=== PATIENT | female | born 1985 | race Caucasian/White ===

== ENCOUNTER → 2016-07-01 | Outpatient (CLI) | payer OTHER ==
[~2016-07-01] MED LIST: PREN1TAB29 PO; TYLENOL # 3 PO
[2016-07-01 12:04] LABS: BASO % 0.1 %; BASO ABS # 0.01 K/uL (0-0.2); COMPLETE YES; EOS % 0.4 %; HEMATOCRIT 36.1 % (37-47); IG% 0.6 %; LYMPH % 22.5 %; LYMPH ABS # 1.59 K/uL (1.2-3.4); MEAN CELL VOLUME 93.8 fL (80-100); MEAN CORPUSCULAR HEMOGLOBIN 32.7 pg (25-34); MEAN CORPUSCULAR HGB CONC 34.9 g/dl (32-36); MEAN PLATELET VOLUME 9.2 fL (7.4-10.4); MONO % 5.5 %; NEUT % 70.9 %; PLATELET COUNT 306 K/uL (130-400); RED BLOOD COUNT 3.85 M/uL (4.2-5.4); WHITE BLOOD COUNT 7.08 K/uL (4.8-10.8)
[2016-07-01 13:05] LABS: GTGD 50 Grams
[2016-07-02 13:54] LABS: AFP CONCENTRATION 30.6 NG/ML; AFP MULTIPLE OF MEDIAN 0.99; AFPTS INSULIN DEP DIABETIC? NO; AFPTS MATERNAL WT 161 LBS; ALPHA-FETOPROTEIN RACE CAUCASIAN=W; EDD DETERMINED BY ULTRASOUND; ESTRIOL MULTIPLE OF MEDIAN 1.34; HISTORY OF NTD NO; INHIBIN A 147 PG/ML; INHIBIN A MOM 0.89; REPEAT SAMPLE? NO; hCG MULTIPLE OF MEDIAN 0.72
== END | disposition home or self-care (01) ==
LOC: C.LAB 09:47
PROVIDERS: ATTEND Obstetrics & Gynecology
DX: Z34.82 Encounter for supervision of other normal pregnancy, second trimester (principal)

== ENCOUNTER → 2016-10-05 | Outpatient (CLI) | payer OTHER | END | disposition home or self-care (01) | LOC: C.LABSPEC 14:54 | PROVIDERS: ATTEND Obstetrics & Gynecology | DX: O99.513 Diseases of the respiratory system complicating pregnancy, third trimester (principal); J02.9 Acute pharyngitis, unspecified; Z3A.00 Weeks of gestation of pregnancy not specified ==

== ENCOUNTER → 2016-11-15 | Outpatient (CLI) | payer OTHER | END | disposition home or self-care (01) | LOC: C.LABSPEC 15:01 | PROVIDERS: ATTEND Obstetrics & Gynecology | DX: Z34.83 Encounter for supervision of other normal pregnancy, third trimester (principal) ==

== ENCOUNTER 2016-12-10 07:14 | Inpatient (IN) | payer OTHER ==
--- NOTE | 2016-12-01 09:40 | PAT Medication Instructions ---
Service Date Dec 01, 2016. Current Home Medication List Vit W/ Ferrous Fumara (), 1 TAB PO QPM [Tylenol # 3], 1 TAB PO PRN Medication Instructions For Your Scheduled Surgery - Hold the following medications the morning of surgery: Vit W/ Ferrous Fumara (), 1 TAB PO QPM - Take the following medications the morning of surgery with a sip of water: [Tylenol # 3], 1 TAB PO PRN (okay to take up to 4 hours prior to surgery if needed) - Take the following medications as scheduled the night before surgery: [Tylenol # 3], 1 TAB PO PRN (if needed) If you have any questions please call us at [phone] or [phone] or [phone]
[2016-12-01 10:23] LABS: BASO % 0.2 %; BASO ABS # 0.02 K/uL (0-0.2); COMPLETE YES; EOS % 0.3 %; HEMATOCRIT 30.7 % (37-47); IG% 2.2 %; LYMPH % 17.4 %; LYMPH ABS # 1.63 K/uL (1.2-3.4); MEAN CELL VOLUME 87.2 fL (80-100); MEAN CORPUSCULAR HEMOGLOBIN 28.1 pg (25-34); MEAN CORPUSCULAR HGB CONC 32.2 g/dl (32-36); MEAN PLATELET VOLUME 8.9 fL (7.4-10.4); NEUT % 73.9 %; PLATELET COUNT 271 K/uL (130-400); RED BLOOD COUNT 3.52 M/uL (4.2-5.4); WHITE BLOOD COUNT 9.39 K/uL (4.8-10.8)
[2016-12-01 10:31] LABS: INR 0.9 (0.9-1.1)
[2016-12-01 11:04] LABS: BLOOD UREA NITROGEN 6 mg/dl (7-18); BUN/CREATININE RATIO 8.3 (10-20); CARBON DIOXIDE 21 mmol/L (21-32); CHLORIDE 107 mmol/L (98-107); CREATININE 0.72 mg/dl (0.60-1.20); GLUCOSE 106 mg/dl (70-99); POTASSIUM 3.7 mmol/L (3.5-5.1); SODIUM 139 mmol/L (136-145)
[2016-12-01 11:07] LABS: CALCIUM 8.7 mg/dl (8.5-10.1)
--- NOTE | 2016-12-07 11:08 | HISTORY & PHYSICAL EXAMINATION ---
DATE OF ADMISSION: 12/10/2016 CHIEF COMPLAINT: Intrauterine , 39 weeks gestation, previous section. HISTORY OF PRESENT ILLNESS: The patient is a 31-year-old 2, para 1, general health is good. SHE IS ALLERGIC TO SULFA. was well dated with a first trimester ultrasound. Her due date 12/16/2016. Her first delivery was 2009, 7 pound 4 ounce male, failed induction at 42 weeks, baby went into distress, nuchal cord. She presently requests repeat section and has been scheduled for a repeat section at 39+ weeks gestation. PAST MEDICAL HISTORY: A 8-year-old boy in good health. ALLERGIES: SHE IS ALLERGIC TO SULFA. PAST SURGICAL HISTORY: She had a previous . She had ovarian cyst removed. She had breast augmentation. She had a tonsillectomy and adenoidectomy. SOCIAL HISTORY: No smoking. No excessive alcohol intake. Did work for a construction company. FAMILY HISTORY: Mom is 41 in good health. Father 50 in good health, 3 sisters in good health. REVIEW OF SYSTEMS: She has a long history plus a family history of migraine headaches. They have been well controlled during the with Tylenol with codeine. PHYSICAL EXAMINATION: GENERAL: Well-developed, well-nourished 31-year-old white female, alert, oriented x3 and cooperative in no acute distress, appeared her stated age. EYES: Conjunctivae are pink, sclerae white, no evidence of jaundice. EARS: Had normal light reflex bilaterally. NOSE: Had normal mucosa. Septum is midline. There were no polyps. THROAT: No erythema or evidence of infection. Teeth are in good state of repair. HEAD: Normocephalic, normal distribution of hair. NECK: Supple. Trachea midline. Thyroid is not enlarged. There is no adenopathy appreciated. Both carotids are of good intensity. CHEST: Clear to auscultation and percussion. No wheezes, rales or rhonchi appreciated. HEART: Regular rhythm. S1, S2 were normal. ABDOMEN: Revealed term size fetus. There was a large tattoo on the left lower quadrant and a well-healed Pfannenstiel incisional scar. PELVIC EXAMINATION: Revealed an anterior cervix, vertex presentation, 1 cm dilated. MUSCULOSKELETAL EXAMINATION: Revealed no calf tenderness. IMPRESSIONS OF THIS CASE: ALLERGIC TO SULFA, status post , status post ovarian cystectomy, status post breast augmentation, status post tonsillectomy and adenoidectomy, intrauterine at 39 weeks gestation for repeat section.
[2016-12-10] VITALS (13 sets, daily range): BP systolic 97–115; BP diastolic 62–72; PULSE 73–91; TEMP 36.4–36.6; O2SAT 97–100; Ht 167.6 cm; Wt 86.4 kg
[~2016-12-10] VITALS: Ht 167.6 cm; Wt 86.4 kg
[~2016-12-10 07:14] MED LIST changes: +CITRIC ACID/SODIUM CITRATE 15 ML UDC PO SCH
[2016-12-10] MEDS ORDERED: CITRIC ACID/SODIUM CITRATE 15 ML UDC PO ONE ×2 (07:30→08:45)
[2016-12-10] MEDS ORDERED: CEFOXITIN IV 2000 MG in DEXTROSE 5% 50ML IV SCH (07:30)
[2016-12-10] MEDS: LACTATED RINGER'S 1000ML 1,000 ML IV SCH ×2 (07:57→09:02)
[2016-12-10 07:58] LABS: INR 0.9 (0.9-1.1)
[2016-12-10 08:18] LABS: BLOOD UREA NITROGEN 9 mg/dl (7-18); BUN/CREATININE RATIO 14.9 (10-20); CARBON DIOXIDE 21 mmol/L (21-32); CHLORIDE 108 mmol/L (98-107); CREATININE 0.59 mg/dl (0.60-1.20); GLUCOSE 81 mg/dl (70-99); POTASSIUM 3.9 mmol/L (3.5-5.1); SODIUM 140 mmol/L (136-145)
[2016-12-10 08:56] LABS: CALCIUM 8.9 mg/dl (8.5-10.1)
[2016-12-10] MEDS ORDERED: FENTANYL CITRATE INJ 50 MCG/1 ML 2 ML VIAL ONE (09:22)
[2016-12-10] MEDS ORDERED: MoRPHine SULFATE PF 1 MG/ML 10 ML AMP/VIAL ONE (09:23)
[2016-12-10] MEDS ORDERED: OXYTOCIN INJ 10 UNITS/ML VIAL ONE ×3 (09:34→13:11)
[2016-12-10] MEDS ORDERED: PHENYLEPHRINE HCL INJ 10 MG/ML VIAL ONE (09:50)
[2016-12-10] MEDS ORDERED: MoRPHine SULFATE PF 1 MG/ML 10 ML AMP/VIAL EPI PRN (10:15)
[2016-12-10] MEDS ORDERED: NALOXONE HCL INJ 1 MG in SODIUM CHLORIDE 0.9% 1000ML 1,000 ML IV PRN (10:15)
[2016-12-10] MEDS ORDERED: DC INTRASPINAL MORPHINE SCH (10:15)
[2016-12-10] MEDS ORDERED: EpHEDrine SULFATE INJ 50 MG/ML AMP IV PRN (10:15)
[2016-12-10] MEDS ORDERED: MEPERIDINE HCL 25 MG/ML CARP IV PRN (10:15)
[2016-12-10] MEDS ORDERED: MoRPHine SULFATE 2 MG/ML CARP IV PRN (10:15)
[2016-12-10] MEDS ORDERED: NALBUPHINE HCL INJ 10 MG/ML AMP IV PRN (10:15)
[2016-12-10] MEDS ORDERED: NO NARCOTICS OR SEDATIVES SCH (10:15)
[2016-12-10] MEDS ORDERED: LACTATED RINGER'S 1000ML 500 ML IV PRN (10:15)
[2016-12-10] MEDS ORDERED: NALOXONE HCL INJ 0.08 MG in SYRINGE 1.8 ML IV PRN (10:15)
[2016-12-10] MEDS ORDERED: ONDANSETRON INJ 2 MG/ML 2 ML VIAL IV PRN (10:15)
[2016-12-10] MEDS ORDERED: DiphenhydrAMINE HCL 50 MG/ML VIAL IV PRN (10:15)
[2016-12-10] MEDS ORDERED: SODIUM CHLORIDE 0.9% 1000ML 1,000 ML IV PRN (10:15)
[2016-12-10] MEDS ORDERED: NALOXONE HCL 0.4 MG/1 ML VIAL/CARP IV PRN (10:15)
[2016-12-10] MEDS ORDERED: SUPERCREAM 0.870 % 15GM JAR EXT PRN (10:45)
[2016-12-10] MEDS ORDERED: LANOLIN OINT EXT PRN ×2 (10:45)
[2016-12-10] MEDS ORDERED: DIPHTHERIA/TETANUS/PERTUSSIS 0.5 ML SYR/VIAL IM. ONE (10:45)
[2016-12-10] MEDS ORDERED: MAGNESIUM HYDROXIDE SUSP 30 ML UDC PO PRN (10:45)
[2016-12-10] MEDS ORDERED: BENZOCAINE 20% AER SPR 82.5 GM CAN EXT PRN (10:45)
[2016-12-10] MEDS ORDERED: SENNA 8.6 MG TAB PO PRN (10:45)
[2016-12-10] MEDS ORDERED: HYDROCORTISONE ACETATE 25 MG SUPP PR PRN (10:45)
--- NOTE | 2016-12-10 12:21 | OPERATIVE REPORT ---
DATE OF OPERATION: 12/10/2016 INDICATIONS FOR SURGERY: Previous section. PREOPERATIVE DIAGNOSIS: Previous section, intrauterine , 39 weeks 1 day. POSTOPERATIVE DIAGNOSIS: Delivered a large female . PROCEDURE: Repeat section. ESTIMATED BLOOD LOSS: 600 mL. ANESTHESIA: Spinal. SURGEON: Dr. Lynn. LEPIDOPTERIST: Nurse title i assistant. OPERATIVE FINDINGS AND PROCEDURE: The patient was brought to the OR table, correctly identified by armband and conversation. Spinal anesthesia was administered. Camara catheter was inserted aseptically in the bladder connected to gravity drainage. Compression stockings were applied. Lower abdomen was painted with an alcohol based sterilizing solution, draped in usual sterile fashion. The adequacy of the anesthesia was tested and found to be good. We then made a Pfannenstiel incision through a previous scar. Incision was carried down to the anterior fascia by sharp dissection. Hemostasis was secured by electrocauterization. Fascia was incised transversely from the underlying muscle by blunt and sharp dissection. Recti muscles were in the midline exposing the peritoneum which was carefully raised and entered. An incision was made above the vesicouterine fold. Bladder was undermined bluntly and pushed out of the operative field. Lower uterine segment was scored with a knife then entered with scissors. Clear amniotic fluid was seen at this time. Vectis retractor was applied to the head and with constant fundal pressure live female was delivered. breathed and cried spontaneously, was attended to by the ointment mill tender, Dr. Hollingsworth who was present and scrubbed at the time of delivery. Cord blood was taken. Placenta was removed manually. Uterus, tubes, and ovaries were brought out through the incision. Uterine cavity was wiped clean with a clean sponge. Ten units of Pitocin was injected into the myometrium. The myometrial layer was then approximated with continuous heavy chromic catgut suture. The endo-fascial layer was approximated over this with a continuous heavy duty Vicryl. After this about 4 [id number] sutures were also used to approximate the lower uterine segment to complete the hemostasis and gave us better approximation. Inspection of the incision line revealed good hemostasis. Palpation revealed good approximation. Pelvis was cleansed of all blood clots and debris. Uterus, tubes, and ovaries were reinserted into the abdomen. Then a careful anatomical approximation of the anterior abdominal wall was done. Peritoneum was closed with a mattress suture of chromic catgut. Recti muscles were approximately interrupted [id number] suture of chromic catgut. The fascia was closed with continuous interlocking suture of Vicryl on each side, tied in the midline. SubQ was approximated with a running plain. Skin edges were approximated with a running subcuticular Vicryl suture. I attest to the content of the Intraoperative Record and any orders documented therein. Any exception s are noted below.
[2016-12-10] MEDS: OXYTOCIN INJ 20 UNITS in LACTATED RINGER'S 1000ML 1,000 ML IV SCH ×2 (12:27→21:00)
[2016-12-10] MEDS: KETOROLAC TROMETHAMINE 30 MG/ML VIAL IV. PRN ×2 (12:40→19:14)
[2016-12-10] MEDS: SIMETHICONE 80 MG CHEW PO SCH ×3 (13:00→20:00)
--- NOTE | 2016-12-10 13:50 | Anesthesiology Progress Note ---
Anesthesia Post Op Note Date & Time Dec 10, 2016 at 13:49 Vital Signs Pain Intensity: 2.0 Notes Mental Status: alert / awake / arousable, participated in evaluation Pt Amnestic to Procedure: Yes Nausea / Vomiting: adequately controlled Pain: adequately controlled Airway Patency, RR, SpO2: stable & adequate BP & HR: stable & adequate Hydration State: stable & adequate Neuraxial Anesthesia: was administered, sensory block is resolving Anesthetic Complications: no major complications apparent
[2016-12-10] MEDS ORDERED: PROMETHAZINE HCL INJ 12.5 MG in SODIUM CHLORIDE 0.9% 50ML 50 ML IV ONE (14:30)
[2016-12-10] MEDS: DOCUSATE SODIUM 100 MG CAP PO SCH (20:05)
[2016-12-11] VITALS (7 sets, daily range): BP systolic 97–104; BP diastolic 63–69; PULSE 69–83; TEMP 36.6–36.8; O2SAT 96–98
[2016-12-11] MEDS: KETOROLAC TROMETHAMINE 30 MG/ML VIAL IV. PRN (01:55)
[2016-12-11] MEDS ORDERED: MEPERIDINE HCL 50 MG/ML CARP IV PRN ×2 (03:31)
[2016-12-11] MEDS ORDERED: KETOROLAC TROMETHAMINE 30 MG/ML VIAL IV. PRN (03:31)
[2016-12-11] MEDS ORDERED: DiphenhydrAMINE HCL 50 MG/ML VIAL IV PRN (03:31)
[2016-12-11] MEDS ORDERED: ZOLPIDEM TARTRATE 5 MG TAB PO PRN (03:31)
[2016-12-11] MEDS ORDERED: ONDANSETRON INJ 2 MG/ML 2 ML VIAL IV PRN (03:31)
[2016-12-11] MEDS ORDERED: CEFOXITIN IV 2,000 MG in DEXTROSE 5% 50ML 50 ML IV SCH (06:00)
[2016-12-11 06:51] LABS: HEMATOCRIT 31.2 % (37-47); MEAN CELL VOLUME 87.2 fL (80-100); MEAN CORPUSCULAR HEMOGLOBIN 27.1 pg (25-34); MEAN CORPUSCULAR HGB CONC 31.1 g/dl (32-36); MEAN PLATELET VOLUME 9.2 fL (7.4-10.4); PLATELET COUNT 213 K/uL (130-400); RED BLOOD COUNT 3.58 M/uL (4.2-5.4); WHITE BLOOD COUNT 13.62 K/uL (4.8-10.8)
[2016-12-11 07:16] LABS: BASO % 0.1 %; BASO ABS # 0.02 K/uL (0-0.2); COMPLETE YES; EOS % 0.4 %; LYMPH % 13.5 %; LYMPH ABS # 1.84 K/uL (1.2-3.4); MONO % 6.2 %; NEUT % 78.8 %
[2016-12-11] MEDS: PRENATAL VITAMIN TAB PO SCH (07:55)
[2016-12-11] MEDS: FERROUS SULFATE 325 MG TAB PO SCH (07:55)
[2016-12-11] MEDS: DOCUSATE SODIUM 100 MG CAP PO SCH ×2 (07:55→20:13)
[2016-12-11] MEDS: OXYCODONE/ACETAMINOPHEN 5-325 TAB PO PRN ×4 (07:56→20:13)
[2016-12-11] MEDS: IBUPROFEN 600 MG TAB PO PRN ×4 (07:56→20:12)
[2016-12-11] MEDS: SIMETHICONE 80 MG CHEW PO SCH ×4 (07:56→20:13)
--- NOTE | 2016-12-11 10:59 | Progress Note ---
Subjective Dec 11, 2016. Subjective conversation w/ patient Ambulation: ambulating normally Voiding: no voiding problems Passing Gas: Yes Diet Tolerance: Regular Diet Lochia: Small Feeding Type: Breast Feeding Review of Systems Constitutional: + fever Objective Vital Signs Date Time Temp Pulse Resp B/P (MAP) Pulse Ox O2 Delivery O2 Flow Rate FiO2 12/11/16 07:45 Room Air 12/11/16 07:00 36.6 69 20 100/67 (78) 96 Room Air 12/11/16 03:50 36.8 72 18 97/63 (74) 98 Room Air 12/11/16 03:50 18 98 12/11/16 02:30 18 98 12/11/16 01:30 16 97 12/11/16 00:30 16 98 12/10/16 23:15 100 Room Air 12/10/16 23:15 36.5 75 18 97/62 (74) 100 Room Air 12/10/16 23:15 18 100 12/10/16 22:00 20 99 12/10/16 21:00 19 98 12/10/16 20:00 18 99 12/10/16 19:30 36.6 73 20 105/67 (80) Room Air 12/10/16 19:00 20 98 12/10/16 18:00 18 98 12/10/16 17:00 19 99 12/10/16 16:00 18 98 12/10/16 15:30 99 Room Air 12/10/16 15:00 20 99 12/10/16 14:45 16 98 12/10/16 14:45 36.5 82 18 113/71 (85) 97 Room Air 12/10/16 13:45 36.4 91 16 115/72 (86) 98 Room Air 12/10/16 13:45 16 98 12/10/16 13:45 98 Room Air Physical Exam General Appearance: WELL-APPEARING Respiratory/Chest: lungs clear Abdomen: normal bowel sounds, non tender Fundus: Firm, Non-Tender Incision Description: Clean, Dry & Intact Extremities: no pedal edema, no calf tenderness Laboratory Results Last 24 Hours Test 12/11/16 06:19 White Blood Count 13.62 K/uL Red Blood Count 3.58 M/uL Hemoglobin 9.7 g/dL Hematocrit 31.2 % Mean Corpuscular Volume 87.2 fL Mean Corpuscular Hemoglobin 27.1 pg Mean Corpuscular Hemoglobin Concent 31.1 g/dl Platelet Count 213 K/uL Mean Platelet Volume 9.2 fL Neutrophils (%) (Auto) 78.8 % Lymphocytes (%) (Auto) 13.5 % Monocytes (%) (Auto) 6.2 % Eosinophils (%) (Auto) 0.4 % Basophils (%) (Auto) 0.1 % Neutrophils # (Auto) 10.73 K/uL Lymphocytes # (Auto) 1.84 K/uL Monocytes # (Auto) 0.84 K/uL Eosinophils # (Auto) 0.06 K/uL Basophils # (Auto) 0.02 K/uL RDW Standard Deviation 49.6 fL RDW Coefficient of Variation 15.8 % Immature Granulocyte % (Auto) 1.0 % Immature Granulocyte # (Auto) 0.13 K/uL Assessment and Plan Post-Op Day#: 1
[2016-12-11] MEDS ORDERED: BISACODYL 5 MG TABEC PO ONE (22:00)
[2016-12-12] MEDS: OXYCODONE/ACETAMINOPHEN 5-325 TAB PO PRN ×3 (00:47→11:19)
[2016-12-12] MEDS: IBUPROFEN 600 MG TAB PO PRN ×3 (00:47→11:19)
[2016-12-12 07:05] VITALS: BP 107/70; PULSE 83; TEMP 36.6; O2SAT 97
[2016-12-12] MEDS: PRENATAL VITAMIN TAB PO SCH (07:50)
[2016-12-12] MEDS: SIMETHICONE 80 MG CHEW PO SCH (07:50)
[2016-12-12] MEDS: FERROUS SULFATE 325 MG TAB PO SCH (07:50)
[2016-12-12] MEDS: DOCUSATE SODIUM 100 MG CAP PO SCH (07:50)
--- NOTE | 2016-12-12 10:34 | Progress Note ---
Subjective Dec 12, 2016. Subjective conversation w/ patient Ambulation: ambulating normally Voiding: no voiding problems Passing Gas: Yes Diet Tolerance: Regular Diet Lochia: Small Feeding Type: Breast Feeding Review of Systems Constitutional: + fever Objective Vital Signs Date Time Temp Pulse Resp B/P (MAP) Pulse Ox O2 Delivery O2 Flow Rate FiO2 12/12/16 07:05 36.6 83 20 107/70 (82) 97 Room Air 12/11/16 23:10 36.6 72 20 104/67 (79) 96 Room Air 12/11/16 23:10 96 Room Air 12/11/16 15:30 Room Air 12/11/16 15:30 36.7 83 20 101/69 (80) Room Air Physical Exam General Appearance: WELL-APPEARING Respiratory/Chest: lungs clear Abdomen: normal bowel sounds, non tender Fundus: Firm, Non-Tender Incision Description: Clean, Dry & Intact Extremities: no pedal edema, no calf tenderness Assessment and Plan Post-Op Day#: 2
--- NOTE | 2016-12-12 10:37 | Discharge Instructions ---
Discharge Instructions Date of Service Dec 12, 2016. Admission Reason for Admission: Term Previous Discharge Discharge Diagnosis / Problem: repeat section Discharge Goals Goal(s): Routine recovery after Activity Recommendations Activity Limitations: as noted below ACTIVITY RECOMMENDATIONS: * Gradual return to full activity over the next 2-3 weeks. * No lifting - nothing heavier than baby over the next 2-3 weeks. * Do not engage in vigorous exercise, sexual activity or sports for 6 weeks. * Do not drive or operate any motorized equipment for 14 days. * You may shower/bathe daily. DIET: Resume Previous Diet If Breast-feeding: * Increase caloric intake by 500 calories, eat 3 well balanced meals, 2 high protein snacks a day and drink 6-8 8oz. glasses of fluid per day. BREAST CARE: If you are not breast feeding: * Wear a supportive bra 24 hours a day for one to two weeks. * Avoid stimulating your breasts and nipples as much as possible during the first few weeks after delivery. * When taking a shower, have the warm water hit your back, not breasts. * When your breasts feel full, apply ice packs. Usually three to four times a day helps ease the discomfort. * Take a mild pain medication (Tylenol / Motrin) when you are uncomfortable. If breast feeding: * Use breast milk to lubricate nipples. Lansinoh cream may be used for sore nipples. You do not need to remove cream prior to breast feeding. If using a different brand of cream, check the label for directions regarding removal of cream prior to nursing. * Wear a supportive bra. * If having problems with breasts or breast feeding, call a strategic solutions consultant or your health care provider. VITAMINS: * One tablet daily. Continue taking while or until you have your check up in 6 weeks. SPECIAL CARE INSTRUCTIONS: * Vaginal rest (no tampons, douching, intercourse) until after doctor's visit. * control as discussed with doctor. * Verbalizes understanding of car seat law as reviewed with patient by nursing. * Car Seat hand-out given and reviewed with patient by nursing. * Shaken baby information reviewed with patient by nursing. Call you doctor if: * Heavy bleeding (saturating a pad an hour) or passing clots the size of your fist. Bleeding has a foul smelling odor. * A fever greater than 100.4 degrees F (38 degrees C) on two occasions four hours apart and/or chills. * Unusual pain in the pelvic or vaginal areas. Pain should improve each day . * Call the doctor for any increased redness, drainage or swelling around the incision and any pain unrelieved by prescribed pain medication. * Signs and symptoms of phlebitis(possible blood clots forming in the veins): leg pain, warm, red or swollen area on leg. * "Baby Blues" lasting longer than two weeks. If you have any questions or concerns, call your health care practitioner at [phone]. FOLLOW-UP VISIT: Follow-up visit for examination in 6 weeks. Incision check (staple removal) in 1 week. Please call office at [phone] if not already scheduled. . Current Hospital Diet Patient's current hospital diet: Regular OB Diet Discharge Diet Recommended Diet: Regular Diet Procedures Procedures Performed: Repeat Caesarean Section; Delivery of a live female child at 0952 Pending Studies Studies pending at discharge: no Medical Emergencies . Who to Call and When: Medical Emergencies: If at any time you feel your situation is an emergency, please call 911 immediately. . Non-Emergent Contact Non-Emergency issues call your: Guillotine Trimmer Call Non-Emergent contact if: temperature is above 100.5 . . "Provider Documentation" section prepared by Shukri Lynn. . VTE Core Measure Inpt VTE Proph given/why not?: Treatment not indicated
[2016-12-12] MEDS ORDERED: BISACODYL 10 MG SUPP PR PRN (10:45)
--- NOTE | 2016-12-12 10:55 | DISCHARGE SUMMARY ---
SUMMARY: Mrs. Palacio was admitted at 39 weeks' 1 day gestation for a repeat section. She previously had a done several years ago and she did request a routine repeat . On the day of admission, she was taken to the OR and given prophylactic antibiotics. She underwent the repeat section without any difficulties and delivered a live female over 8 pounds. Her preoperative hemoglobin was 9.9, hematocrit 30.7. Postoperatively hemoglobin was 9.7 and hematocrit 31.2. Her postoperative course was smooth. Her bowel sounds returned in under 24 hours. On the second postoperative day; she was ambulating well, eating well, afebrile and she requested early discharge. She was given prescriptions for Percocet and Motrin, usual postoperative instructions and told to return to the office in 6 weeks for a routine followup.
[2016-12-12 11:00] VITALS: BP_DIAS 70; PULSE 83; TEMP 36.6
== END 2016-12-12 11:35 | disposition home or self-care (01) | DRG 766 ==
LOC: C.LD 07:14 → EDSTATUS 09:00 → C.OBG 14:03
PROVIDERS: ADMIT Obstetrics & Gynecology; ATTEND Obstetrics & Gynecology
PROC: 10D00Z1 Extraction of Products of Conception, Low, Open Approach (ICD-10-PCS; principal; 2016-12-10 09:00)
DX: O34.211 Maternal care for low transverse scar from previous cesarean delivery (principal); Z37.0 Single live birth; Z3A.39 39 weeks gestation of pregnancy; Z88.2 Allergy status to sulfonamides

== ENCOUNTER → 2017-02-01 | Outpatient (CLI) | payer OTHER ==
[~2017-02-01] MED LIST changes: -CITRIC ACID/SODIUM CITRATE 15 ML UDC PO SCH
== END | disposition home or self-care (01) ==
LOC: C.PAPS 15:27
PROVIDERS: ATTEND Obstetrics & Gynecology
DX: Z39.2 Encounter for routine postpartum follow-up (principal)